=== PATIENT | female | born 1970 | race Caucasian/White ===

== ENCOUNTER 2018-08-12 00:56 | Outpatient (CLI) | payer BC, SELFPAY ==
--- NOTE | 2018-08-12 07:00 | DI.US_ITS ---
SYMPTOM/DIAGNOSIS: RUQ PAIN WITH VOMITING, R10.11 ABDOMEN ULTRASOUND: The aorta and vena cava are normal. The liver is somewhat enlarged with a maximal diameter at the mid clavicular line of 17.1 cm. There is no evidence of cholelithiasis. The gallbladder is intact. There is no evidence of ductal obstruction. The pancreas is intact. The spleen is intact. There is a 4.9 by 3.5 by 3.7 cm., known, angiomyolipoma involving the left kidney. This finding was demonstrated on a previous CT examination of 04/05/2012. There are at least two smaller hyperechoic regions in the left kidney suggesting additional angiomyolipomata. There is no evidence of hydronephrosis. There is no evidence of abdominal free fluid. SUMMARY: Angiomyolipomata involving the left kidney are demonstrated. A dominant mass is unchanged when compared with previous images and at least two smaller areas of increased echogenicity likely represent additional angiomyolipomata.
== END 2018-08-12 01:16 ==
PROVIDERS: PCP Internal Medicine; Visit Provider Internal Medicine
DX: R10.11 Right upper quadrant pain (principal); R11.10 Vomiting, unspecified; D17.71 Benign lipomatous neoplasm of kidney
CPT/HCPCS: 76700

== ENCOUNTER 2018-08-16 13:02 | Outpatient (CLI) | payer BC, SELFPAY ==
[2018-08-16 14:14] LABS: ALT 29 U/L (12-78); AST 19 U/L (15-37); Albumin 3.6 g/dL (3.4-5.0); Alkaline Phosphatase 65 U/L (46-116); Bilirubin, Direct 0.12 mg/dL (0.00-0.20); Bilirubin, Total 0.6 mg/dL (0.2-1.0); Total Protein 6.8 g/dL (6.4-8.2)
[2018-08-17 11:28] LABS: Hepatitis A Antibody IgM Negative (NEGAT); Hepatitis B Core Antibody Negative (NEGAT); Hepatitis B surface Ag Negative (NEGAT); Hepatitis C Ab w Rflx HCV PCR Negative (NEGAT)
== END 2018-08-16 13:22 ==
PROVIDERS: PCP Internal Medicine; Visit Provider Internal Medicine
DX: R10.11 Right upper quadrant pain (principal); R94.5 Abnormal results of liver function studies; R16.0 Hepatomegaly, not elsewhere classified
CPT/HCPCS: 36415; 80076; 86704; 86709; 86803; 87340

== ENCOUNTER 2019-02-14 09:45 | Outpatient (CLI) | payer BC, SELFPAY ==
[2019-02-14 10:26] LABS: Abs Immature Grans 0.01 k/cumm (0.0-0.09); Absolute Basophil Count 0.01 k/cumm (0.0-0.2); Absolute Eosinophil Count 0.21 k/cumm (0.0-0.7); Absolute Lymphocyte Count 1.14 k/cumm (1.2-3.4); Basophils % 0.3; Eosinophils % 5.4; HCT 38.1 % (36.0-46.0); HGB 12.7 g/dL (12.0-15.5); Immature Grans % 0.3; Lymphocytes % 29.1; Mean Corp. HGB Concentration 33.3 g/dL (32.0-36.0); Mean Corpuscular Hemoglobin 28.7 pg (27.0-33.0); Mean Corpuscular Volume 86.2 fL (80-95); Mean Platelet Volume 10.3 fL (8.0-11.0); Monocytes % 10.2; Neutrophils % 54.7; Platelet Count 271 x1000/uL (130-400); RBC 4.42 m/cumm (4.00-5.20); RBC Distribution Width 12.5 % (11.7-14.6); White Blood Cell Count 3.92 k/cumm (4.4-10.8)
[2019-02-14 10:38] LABS: Absolute Neutrophil Count 2.14 k/cumm (1.2-6.7)
[2019-02-14 11:33] LABS: ALT 36 U/L (12-78); AST 17 U/L (15-37); Albumin 3.8 g/dL (3.4-5.0); Alkaline Phosphatase 72 U/L (46-116); BUN 14 mg/dL (7-18); Bilirubin, Total 0.8 mg/dL (0.2-1.0); CREATININE 0.79 mg/dL (0.55-1.02); Calcium 9.2 mg/dL (8.5-10.1); Chloride 104 mmol/L (98-107); Glucose 76 mg/dL (70-100); Potassium 4.1 mmol/L (3.5-5.1); Sodium 141 mmol/L (136-145); Total Protein 7.3 g/dL (6.4-8.2)
== END 2019-02-14 10:05 ==
PROVIDERS: PCP Internal Medicine; Visit Provider Internal Medicine
DX: I10 Essential (primary) hypertension (principal)
CPT/HCPCS: 36415; 80053; 85025

== ENCOUNTER 2019-02-18 00:43 | Outpatient (CLI) | payer BC, SELFPAY ==
--- NOTE | 2019-02-18 11:30 | ETT_ITS ---
*[facility]* *[facility]* [address] [place] [address] Stress Electrocardiography Alex protocol Date of study: 02/18/2019 *PATIENT PRESENTATION* Height: 157.5cm (62in) Blood Pressure: Weight: 79.5kg (175lb) BSA: 1.9m^2 Referring physician: Teresa Watters Ordering physician: Teresa Watters Impressions: Normal study after maximal exercise. Summary: 1. Stress ECG conclusions: Franz treadmill score: 10. This score predicts a low risk of cardiac events. 2. Stress: The target heart rate was achieved. Indication: R07.9. History: REASON FOR TESTING: SINCE THE BEGINNING OF WINTER PATIENT HAS HAD INTERMITTENT BRIEF EPISODES OF TENDERNESS ABOVE HER LEFT BREAST RADIATING TO HER LEFT AXILLA. THESE EPISODES LAST APPROXIMATELY 5-10 MINUTES AND GOES AWAY ON ITS OWN AND ARE NOT ASSOCIATED WITH ACTIVITY OR REST. SHE ALSO NOTES SHORTNESS OF BREATH WHEN GOING UP STAIRS AND LYING DOWN. SHE DENIES CHEST PAIN/PRESSURE UPON ARRIVAL TO TESTING TODAY. SIGNIFICANT PAST MEDICAL HISTORY: NONE. SMOKING STATUS: NEVER. EXERCISE ROUTINE: DAILY ADL'S. Risk factors: Family history of coronary artery disease. Hypertension. Obesity. Cholesterol: 196mg/dl. HDL: 68mg/dl. LDL: 120mg/dl. Triglycerides: 50mg/dl. ALLERGIES: NO MEDICATION ALLERGIES. MEDICATIONS: LISINOPRIL 10 MG DAILY, PANTOPRAZOLE 40 MG DAILY, VITAMIN D 2000 UNITS DAILY, L LYSINE 2 CAPSULES DAILY. Protocol: Alex protocol. Baseline ECG: SINUS RHYTHM. HR 86 BPM. Stress protocol: + +---+ + !Stage !HR !BP (mmHg) ! + +---+ + !Baseline supine !86 !128/80 (96) ! + +---+ + !Baseline standing !89 !130/84 (99) ! + +---+ + !Stage I; 1.7mph, 10degrees; 3 min !124!148/76 (100)! + +---+ + !Stage II; 2.5mph, 12degrees; 3 min !143!152/70 (97) ! + +---+ + !Stage III; 3.4mph, 14degrees; 3 min!174!168/70 (103)! + +---+ + !Peak stress !188! ! + +---+ + !Recovery; 1 min !162!170/60 (97) ! + +---+ + !Recovery; 4 min !113!140/72 (95) ! + +---+ + !Recovery; 6 min !110!136/74 (95) ! + +---+ + !Recovery; 9 min !108!130/74 (93) ! + +---+ + * Stress results: STRESS TEST ENDED IN 10 MINUTES 4 SECONDS DUE TO FATIGUE. NORMAL HEART RATE RESPONSE TO EXERCISE, BUT HEART RATE SLOW TO RETURN TO BASELINE IN RECOVERY PHASE. NORMAL BLOOD PRESSURE RESPONSE TO EXERCISE. MAX HEART RATE: 188. 109 % OF TARGET HEART RATE ACHIEVED. MET'S: 109. NO ECTOPY. NO ANGINA. NO SIGNIFICANT ST SEGMENT CHANGES. FUNCTIONAL CAPACITY: ABOVE AVERAGE. Maximal heart rate during stress was 188bpm (109% of maximal predicted heart rate). The maximal predicted heart rate was 172bpm. The target heart rate was achieved. The rate-pressure product for the peak heart rate and blood pressure was 65206bu Hg/min. Stress ECG: Franz treadmill score: 10. This score predicts a low risk of cardiac events. Study data: Francisco Diaz MD supervised and was readily available during the procedure. This study was interpreted by [facility]. Study status: Routine. Consent: The risks, benefits, and alternatives to the procedure were explained to the patient and informed consent was obtained. Procedure: Initial setup. A baseline ECG was recorded. Surface ECG leads and manual cuff blood pressure measurements were monitored. Heart sounds: Normal. Lung sounds: Normal. Treadmill exercise testing was performed using the Alex protocol. Study completion: The patient tolerated the procedure well and was discharged from the lab. Discharge: The patient left the laboratory in stable condition. Birthdate: Patient birthdate: 1970. Sex: Gender: female. Study date: Study date: 02/18/2019. Study time: 00:01 AM. Signature Documentation: The Stress ECG portion of this study was interpreted by Francisco Diaz MD. Electronically signed by Francisco Diaz 02/18/2019 12:48
== END 2019-02-18 01:03 ==
PROVIDERS: PCP Internal Medicine; Visit Provider Internal Medicine
DX: R07.9 Chest pain, unspecified (principal); R06.02 Shortness of breath; I10 Essential (primary) hypertension; Z82.49 Family history of ischemic heart disease and other diseases of the circulatory system
CPT/HCPCS: 93017

== ENCOUNTER 2022-07-15 15:26 | Outpatient (REF) | payer BC, SELFPAY ==
[2022-07-15 17:15] LABS: Abs Immature Grans 0.01 10^3/uL (0.0-0.06); Absolute Basophil Count 0.02 10^3/uL (0.0-0.2); Absolute Eosinophil Count 0.15 10^3/uL (0.0-0.7); Absolute Lymphocyte Count 1.27 10^3/uL (1.2-3.4); Absolute Monocyte Count 0.54 10^3/uL (0.1-0.8); Absolute Neutrophil Count 3.33 10^3/uL (1.2-6.7); Basophils % 0.4; Eosinophils % 2.8; HCT 39.5 % (36.0-46.0); HGB 13.4 g/dL (11.2-15.7); Immature Grans % 0.2; Lymphocytes % 23.9; MCH 29.4 pg (27.0-33.0); MCHC 33.9 % (32.0-36.0); MCV 87 fL (80-95); MPV 10.8 fL (8.0-11.0); Monocytes % 10.2; Neutrophils % 62.5; Platelet Count 315 10^3/uL (130-400); RBC 4.56 10^6/uL (3.93-5.22); RDW 12.3 % (11.7-14.6); WBC 5.32 10^3/uL (4.4-10.8)
== END 2022-07-15 15:27 | disposition home or self-care (01) ==
LOC: NCHCN 15:26
PROVIDERS: PCP Family Medicine; Visit Provider Physician Assistant Medical
DX: R07.89 Other chest pain (principal); R03.0 Elevated blood-pressure reading, without diagnosis of hypertension
CPT/HCPCS: 80053; 85025

== ENCOUNTER → 2022-07-16 01:52 | Outpatient (CLI) | payer BC, SELFPAY ==
--- NOTE | 2022-07-16 10:59 | DI.RAD_ITS ---
Exam(s) XR SHOULDER LT COMPLETE 2+V EXAM: XR SHOULDER LT COMPLETE 2+V CLINICAL HISTORY: LT SHOULDER PAIN, M25.512. TECHNIQUE: 2D digital imaging was performed. COMPARISON: No exams were available for comparison FINDINGS: Five views No evidence of fracture nor dislocation or abnormal soft tissue calcifications. Subacromial space ap pears unremarkable. There are no degenerative changes in the glenohumeral and AC joints. Bone densi ty normal. No osseous lesions. No os acromiale. IMPRESSION: No significant radiograph findings in the left shoulder. DATA REPOSITORY: RADIATION DOSE DELIVERED:
== END ==
PROVIDERS: PCP Family Medicine; Visit Provider Physician Assistant Medical
DX: M25.512 Pain in left shoulder (principal)
CPT/HCPCS: 73030

== ENCOUNTER 2022-07-29 19:15 | Outpatient (REF) | payer BC, SELFPAY ==
[2022-07-29 16:05] LABS: ALT 35 U/L (14-59); AST 25 U/L (15-37); Albumin 3.7 g/dL (3.4-5.0); Alkaline Phosphatase 67 U/L (46-116); Anion Gap 7.5 mmol/L (3-11); BUN 8 mg/dL (7-18); Bilirubin, Total 0.6 mg/dL (0.2-1.0); CO2 27.5 mmol/L (21.0-32.0); CREATININE 0.8 mg/dL (0.55-1.02); Calcium 8.8 mg/dL (8.5-10.1); Chloride 105 mmol/L (98-107); Estimated GFR 89.15 (mL/min/1.73m2); Glucose 94 mg/dL (74-106); Magnesium 1.5 mg/dL (1.8-2.4); Potassium 3.9 mmol/L (3.5-5.1); Sodium 140 mmol/L (136-145); TSH (W/Ref FT4) 1.86 uIU/mL (0.36-3.74); Total Protein 7.3 g/dL (6.4-8.2)
== END 2022-07-29 19:16 | disposition home or self-care (01) ==
LOC: NCHCN 19:15
PROVIDERS: PCP Physician Assistant Medical; Visit Provider Physician Assistant Medical
DX: R03.0 Elevated blood-pressure reading, without diagnosis of hypertension (principal); R07.89 Other chest pain
CPT/HCPCS: 80053; 83735; 84443

== ENCOUNTER 2022-08-20 12:53 | Outpatient (REF) | payer BC, SELFPAY ==
[2022-08-20 17:37] LABS: Magnesium 1.8 mg/dL (1.8-2.4)
== END 2022-08-20 12:54 | disposition home or self-care (01) ==
LOC: NCHCN 12:53
PROVIDERS: PCP Physician Assistant Medical; Visit Provider Physician Assistant Medical
DX: E83.42 Hypomagnesemia (principal)
CPT/HCPCS: 83735

== ENCOUNTER 2023-06-26 10:44 | Outpatient (REF) | payer BC, SELFPAY ==
[2023-06-26 16:30] LABS: Abs Immature Grans 0.01 10^3/uL (0.0-0.06); Absolute Basophil Count 0.02 10^3/uL (0.0-0.2); Absolute Eosinophil Count 0.18 10^3/uL (0.0-0.7); Absolute Lymphocyte Count 1.06 10^3/uL (1.2-3.4); Absolute Monocyte Count 0.45 10^3/uL (0.1-0.8); Absolute Neutrophil Count 3.01 10^3/uL (1.2-6.7); Basophils % 0.4; Eosinophils % 3.8; HCT 38.8 % (36.0-46.0); HGB 13.2 g/dL (11.2-15.7); Immature Grans % 0.2; Lymphocytes % 22.4; MCH 29.4 pg (27.0-33.0); MCV 86 fL (80-95); MPV 11.1 fL (8.0-11.0); Monocytes % 9.5; Neutrophils % 63.7; Platelet Count 283 10^3/uL (130-400); RBC 4.49 10^6/uL (3.93-5.22); RDW 12.6 % (11.7-14.6); RDW-SD 39.8 fL; WBC 4.73 10^3/uL (4.4-10.8)
[2023-06-26 17:30] LABS: ALT 24 U/L (14-59); AST 29 U/L (15-37); Albumin 3.7 g/dL (3.4-5.0); Alkaline Phosphatase 54 U/L (46-116); BUN 9 mg/dL (7-18); Bilirubin, Total 0.7 mg/dL (0.2-1.0); CREATININE 0.6 mg/dL (0.55-1.02); Calcium 8.9 mg/dL (8.5-10.1); Calculated LDL 110 mg/dL (<100); Chloride 107 mmol/L (98-107); Cholesterol 188 mg/dL (<200); Estimated GFR 107.93 (mL/min/1.73m2); Glucose 116 mg/dL (74-106); HDL Cholesterol 66 mg/dL (40-60); Magnesium 1.8 mg/dL (1.8-2.4); Potassium 4.1 mmol/L (3.5-5.1); Sodium 139 mmol/L (136-145); Total Protein 7.4 g/dL (6.4-8.2); Triglyceride 63 mg/dL (<150)
== END 2023-06-26 10:45 | disposition home or self-care (01) ==
LOC: NCHCN 10:44
PROVIDERS: PCP Physician Assistant Medical; Visit Provider Physician Assistant Medical
DX: R06.02 Shortness of breath (principal); I10 Essential (primary) hypertension; R73.09 Other abnormal glucose; R53.83 Other fatigue
CPT/HCPCS: 80053; 80061; 83735; 84443; 85025

== ENCOUNTER 2023-07-01 02:04 | Outpatient (CLI) | payer BC, SELFPAY ==
--- NOTE | 2023-07-01 09:00 | DI.RAD_ITS ---
Exam(s) XR CHEST 2V PA LATERAL EXAM: XR CHEST 2V PA LATERAL CLINICAL HISTORY: SOB, R06.02 TECHNIQUE: 2D digital imaging was performed. COMPARISON: CR,RF BARIUM SWALLOW W PA LAT CXR from 09/17/2012 FINDINGS: HEART: Normal size. Aorta: Not dilated. PULMONARY VASCULATURE: Normal. LUNGS: Clear. PLEURAL SPACE: No pleural effusion or pneumothorax. BONE:Unremarkable for age. IMPRESSION: No acute abnormality. DATA REPOSITORY: RADIATION DOSE DELIVERED:
== END 2023-07-01 02:24 ==
LOC: DI 02:04
PROVIDERS: PCP Physician Assistant Medical; Visit Provider Physician Assistant Medical
DX: R06.02 Shortness of breath (principal)
CPT/HCPCS: 71046

== ENCOUNTER 2023-08-27 19:00 | Emergency (ER) | payer BC, SELFPAY ==
[2023-08-27] VITALS (34 sets, daily range): BP systolic 137–190; BP diastolic 67–107; PULSE 85–108; RESP 14–26; TEMP 36.6–37.6; O2SAT 94–98
--- NOTE | 2023-08-27 19:15 | DI.RAD_ITS ---
Exam(s) XR WRIST LT COMPLETE EXAM: XR WRIST LT COMPLETE CLINICAL HISTORY: Deformity. TECHNIQUE: 2D digital imaging was performed. Three views. COMPARISON: No exams were available for comparison FINDINGS: BONES: Comminuted distal radial fracture with significant dorsal displacement and angulation. There is also some impaction and foreshortening. The distal ulna and carpal bones appear intact. No bony destructive lesion is seen. JOINTS: The carpal bones are normally aligned. SOFT TISSUE: Diffuse swelling. IMPRESSION: Comminuted, displaced distal radial fracture. DATA REPOSITORY: RADIATION DOSE DELIVERED:
--- NOTE | 2023-08-27 19:29 | ED.GENADUL_ITS ---
Discharge Plan Disposition Patient Disposition: Home Condition: Improving Discharge Details Clinical Impression: Fracture of radius Primary Care Provider: Amy Castanon ED Provider: Daina Do Home Meds and New Rx's Prescriptions: Continued magnesium 500 mg Tablet 500 mg PO DAILY cranberry 400 mg Capsule 400 mg PO DAILY omega-3 fatty acids 300 mg Capsule 300 mg PO DAILY No Action naproxen 250 mg tablet 250 - 500 mg PO BID PRNQty: 30 0RF Rx Instructions: take with a meal oxycodone 5 mg tablet 5 - 10 mg PO Q4H MDD 30 mg PRN (Reason: moderate to severe pain) Qty: 12 0RF Discharge Instructions Instructions: Arm Fracture in Adults (ED), Splint Care (ED) Additional Instructions: Keep splint dry. Keep arm elevated above level of your heart. Ice. Take the Percocet as needed for moderate to severe pain. If the desmond wrap feels too tight, you may loosen it but do not take the splint off. Present to day surgery at 6:30 AM tomorrow morning as instructed. Do not eat or drink anything after midnight tonight. You may have small sips of water with medications if needed. Referrals: Beto Ruiz MD [ [facility] STAFF PHYSICIAN] - 1 day Discharge Data Discharge Date/Time-TO BE ENTERED AT DEPARTURE: 08/27/23 23:40 Medical Decision Making 53-year-old female presents to the ER with a chief complaint of left wrist pain status post a fall off a ladder. This occurred just prior to arrival. She does have some deformity and swelling noted to the palmar surface of her distal left wrist. Radial pulses intact hand is pink warm dry. Denies any other injuries. Denies hitting her head no neck or back pain. X-ray left wrist, set and Zofran ordered. Images sent to Dr. Ruiz who is patient transition specialist for orthopedics. He recommends reduction with either Hematoma block, sedation or finger traps. Will discuss with patient. Patient consented for hematoma block and reduction with finger traps. Wrist reduction performed, placed in sugar tong splint, patient reports improvement in pain after reduction, wrist appears in more anatomical alignment. Post reduction XR ordered. Will consider Sedation with additional revision of reduction if needed. 2140: Discussed concious sedation with patient and family, she verbalizes understanding. Will consent for procedure with Dr. Shields assistance. 2230: RT at BS, patient on monitor, preparing for conscious sedation, Finger traps at BS. 2248: Propofol 80 mg given IVP, Postreduction XR ordered, splint applied. CMS intact post splint application, assisted by Dr. Shields. Patient remained hemodynamically stable, and easily arrousable throughout procedure. Dr. Ruiz recommends presnting to Day surgery tomorrow am at 0630 to further reduce wrist, discussed NPO status with patient and family who verbalize understanding. Will send home with a percocet as needed. Sling placed. This text was generated using [employer] system, please disregard any oddities of phrase or misspellings. HPI General Mode of arrival: ambulatory . Date/Time Provider Initiated Documentation: 08/27/23 19:02 . Limitations to Documentation: no limitations . Information obtained by: patient, RN notes reviewed and old records reviewed . HPI Narrative: 53-year-old female presents to the ER with a chief complaint of left wrist pain status post a fall off a ladder. This occurred just prior to arrival. She does have some deformity and swelling noted to the palmar surface of her distal left wrist. Radial pulses intact hand is pink warm dry. Denies any other injuries. Denies hitting her head no neck or back pain. Related Data Home Medications Medication Instructions Recorded Confirmed cranberry 400 mg capsule 400 mg PO DAILY 08/27/23 08/28/23 magnesium 500 mg tablet 500 mg PO DAILY 08/27/23 08/28/23 omega-3 fatty acids 300 mg capsule 300 mg PO DAILY 08/27/23 08/28/23 naproxen 250 mg tablet 250 - 500 mg PO BID PRN #30 tabs 08/28/23 oxycodone 5 mg tablet 5 - 10 mg PO Q4H PRN moderate to 08/28/23 severe pain #12 tabs Previous Rx's Medication Instructions Recorded naproxen 250 mg tablet 250 - 500 mg PO BID PRN #30 tabs 08/28/23 oxycodone 5 mg tablet 5 - 10 mg PO Q4H PRN moderate to 08/28/23 severe pain #12 tabs Allergies Allergy/AdvReac Type Severity Reaction Status Date / Time No Known Allergies Allergy Verified 08/28/23 07:23 General Stated Complaint: Orthopedic FRANCISCA: 3 Review of Systems All systems reviewed & are unremarkable except as noted in HPI and below ENT Ears, Nose, Mouth, and Throat: Denies neck pain Musculoskeletal Musculoskeletal: Reports as per HPI, Denies back pain, Reports arthralgias, Reports joint swelling and Denies neck pain PFSH All Active Problems (Updated 08/28/23 @ 06:58 by Beto Ruiz MD) Fracture of left distal radius (Acute 08/27/23) Epicondylitis, lateral, right (Acute) History of bilateral ligation of fallopian tubes (Acute) History of myringotomy (Acute) Status post adenoidectomy (Acute) Uterine prolapse (Acute 10/06/12) SEES DR. 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 07/29 Medical History Essential hypertension Surgical History Adenoidectomy Ligation of fallopian tube Myringotomy w/ PE (pressure equalizing) tubes Family History Mother Essential hypertension Father Diabetes Hyperlipidemia Essential hypertension Sister No problems noted. Brother No problems noted. Maternal Grandfather , AGE 85 Alcohol abuse Lymphoma Paternal Grandfather , AGE 26 Leukemia Maternal Grandmother , AGE 54 Diabetes Stroke Paternal Grandmother Diabetes Cancer Paternal Aunt Diabetes Paternal Uncle Diabetes Son No problems noted. Son No problems noted. Son No problems noted. Son No problems noted. Son No problems noted. 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 Pets and animals: Yes Pets and animals: dog(s) Sexually active: Yes Do you think of yourself as: straight/heterosexual Current gender identity: female What is your relationship status?: How often do you talk on the phone with friends or family?: three or more times per week How often do you get together with friends or relatives?: three or more times per week How often do you attend denominational or taoist services?: 4 or more times per year Do you belong to any clubs or organized social groups?: no Panel score (0-1 are the most socially isolated patients): 3 What type of physical activity do you participate in: walking Duration: 15-30 minutes/day Frequency: 1-2 times per week Bhavna/Zoroastrianism: Tenriism Special bhavna needs: No Seatbelt use: always Helmet use: No (N/A) Drive intox or ride w/intox party bus driver: No Exam Extrem General: normal to inspection Left upper extremity: wrist Details: abnormal to inspection Details: obvious deformity, tenderness, swelling and radial pulse present Course Vital Signs Vital signs: Vital Signs Temperature 37.6 C H 08/27/23 19:10 Pulse 85 08/27/23 19:10 Respiratory Rate 26 H 08/27/23 19:10 Blood Pressure 164/89 H 08/27/23 19:10 Pulse Oximetry 98 08/27/23 19:10 Temperature 37.6 C H 08/27/23 19:10 Temperature Source Temporal Artery Scan 08/27/23 19:10 Pulse 85 08/27/23 19:10 Respiratory Rate 26 H 08/27/23 19:10 Blood Pressure 164/89 H 08/27/23 19:10 Blood Pressure Position Sitting 08/27/23 19:10 Pulse Oximetry 98 08/27/23 19:10 Oxygen Delivery Method Room Air 08/27/23 19:10 Oxygen Flow Rate 0 08/27/23 19:10 Pain Level 9 08/27/23 19:10 Procedures Nerve Block Nerve Block 1: Time out performed: No Local Anesthetic: Lidocaine 1%, Bupivicaine 0.5% and with Epi Side: left Nerve Blocks: hematoma block (left wrist) Patient Tolerated Procedure: well and no complications Complications: none Orthopedic Fracture Reduction Fracture #1: Time Out Performed: Yes (Assisted by Dr. Fernandez) Side: left Fracture Reduction Location: radius Analgesia: procedural sedation Technique: direct manipulation and finger traps Post-reduction neuro exam: intact Post-reduction vascular exam: intact Splint Applied: Yes Patient Tolerated Procedure: well
[2023-08-27] MEDS: oxyCODONE 5 mg/Acetaminophen 325 mg TAB 1 TAB PO ×2 (19:52→23:42)
[2023-08-27] MEDS: Ondansetron O.D.T. 4 MG TABEF PO (19:52)
--- NOTE | 2023-08-27 20:28 | DI.VRAD_ITS ---
PROCEDURE INFORMATION: Exam: XR Left Wrist Exam date and time: 08/27/2023 8:01 PM Age: 53 years old Clinical indication: Other: Deformity TECHNIQUE: Imaging protocol: Radiologic exam of the left wrist. Views: 3 or more views. COMPARISON: No relevant prior studies available. FINDINGS: Bones/joints: Impacted comminuted and dorsally angulated distal radial fracture. No dislocation at the radiocarpal joint. Soft tissues: Swelling surrounding the wrist. Faint osseous fragment noted dorsally IMPRESSION: Comminuted distal radial fracture with impaction and angulation as noted Dictated and Authenticated by: Albert Harkins MD. Ordering:CELESTE Lama MD
--- NOTE | 2023-08-27 21:00 | DI.RAD_ITS ---
Exam(s) XR WRIST LT LIMITED EXAM: XR WRIST LT LIMITED CLINICAL HISTORY: Post reduction. TECHNIQUE: 2D digital imaging was performed. Two views. Portable. COMPARISON: CR,XR XR WRIST LT COMPLETE from 08/27/2023 FINDINGS: A splint has been placed. There has been no significant change in the alignment of the comminuted, i mpacted and angulated distal radial fracture. The distal ulna and carpal bones are grossly intact. DATA REPOSITORY: RADIATION DOSE DELIVERED:
--- NOTE | 2023-08-27 21:53 | DI.VRAD_ITS ---
PROCEDURE INFORMATION: Exam: XR Left Wrist Exam date and time: 08/27/2023 9:26 PM Age: 53 years old Clinical indication: Other: Post reduction TECHNIQUE: Imaging protocol: Radiologic exam of the left wrist. Views: 1 or 2 views. COMPARISON: CR XR WRIST LT COMPLETE 08/27/2023 8:01 PM FINDINGS: Bones/joints: Status post closed reduction of a displaced distal left radial epiphyseal fracture. Complete dorsal displacement and dorsal angulation persist. No significant reduction compared with the pre casting image. This is a surgical fracture. Distal ulna is intact. Soft tissues: Normal. IMPRESSION: Persistent severe displacement and dorsal angulation of the distal left radial epiphysis. Orthopedic consultation is recommended for surgical evaluation. Dictated and Authenticated by: Adis Arthur MD. Ordering:CELESTE Lama MD
[2023-08-27] MEDS: Normal Saline 1,000 ML 150 ML IV (22:00)
[2023-08-27] MEDS: Propofol 200 MG/20 ML VIAL 80 MG IVP (22:37)
--- NOTE | 2023-08-27 22:45 | DI.RAD_ITS ---
Exam(s) XR WRIST LT LIMITED EXAM: XR WRIST LT LIMITED CLINICAL HISTORY: Post reduction. TECHNIQUE: 2D digital imaging was performed. Three views. COMPARISON: No exams were available for comparison FINDINGS: A splint has been placed. There has been some improvement in the amount posterior angulation and displacement of the distal rad ial fracture. The carpal alignment remains normal. IMPRESSION: Improved alignment of distal radial fracture. DATA REPOSITORY: RADIATION DOSE DELIVERED:
--- NOTE | 2023-08-27 23:06 | DI.VRAD_ITS ---
PROCEDURE INFORMATION: Exam: XR Left Wrist Exam date and time: 08/27/2023 10:59 PM Age: 53 years old Clinical indication: Other: Post reduction TECHNIQUE: Imaging protocol: Radiologic exam of the left wrist. Views: 1 or 2 views. COMPARISON: CR XR WRIST LT LIMITED 08/27/2023 9:26 PM FINDINGS: Bones/joints: Additional attempt at closed reduction of left wrist distal radial Colles fracture. There is improved alignment. There is persistent dorsal displacement of the epiphysis 4-5 mm. There is dorsal angulation at approximately 10 degrees. No ulnar fracture. Carpal bones are unremarkable. Soft tissues: Normal. IMPRESSION: 1. Improved alignment of distal radial Colles fracture. Persistent 5 mm dorsal displacement of the epiphysis and approximately 10 degree dorsal angulation. 2. Fiberglass splint in position. Dictated and Authenticated by: Adis Arthur MD. Ordering:CELESTE Lama MD
--- NOTE | 2023-08-27 23:13 | NUR.NOTE ---
2237 started with half dose-40mg of propofol. started to feel something at 1038-given the full dose-another 40mg. 2240 splinting. pt awake and talking.Nursing Note:
--- NOTE | 2023-08-27 23:30 | W.ED.PROC ---
Date of service: 08/27/23 Time of Service: 23:30 Procedures Orthopedic Joint Reduction Joint #1: Time Out Performed: Yes Side: left Joint Reduction Location: wrist Analgesia: procedural sedation and other (Propofol 1 mg/kg) Technique used: direct manipulation Post-reduction neuro exam: intact Post-reduction vascular: intact Post Reduction X-Ray Obtained: Yes Post Reduction X-Ray Results: reduced Splint Applied: Yes Patient Tolerated Procedure: well
== END 2023-08-27 23:40 | disposition home or self-care (01) ==
PROVIDERS: Emergency Provider Registered Nurse Emergency; PCP Physician Assistant Medical
DX: M25.532 Pain in left wrist (principal); S52.572A Other intraarticular fracture of lower end of left radius, initial encounter for closed fracture; W11.XXXA Fall on and from ladder, initial encounter
CPT/HCPCS: 25605; 73100; 73110; J2704

== ENCOUNTER 2023-08-28 06:48 | Day surgery (SDC) | payer BC, SELFPAY ==
--- NOTE | 2023-08-28 06:58 | W.ORTHOCONSU ---
Date of service: 08/28/23 Time of Service: 06:58 Assessment and Plan Assessment and plan (1) Fracture of left distal radius: Status: Acute Assessment and plan: 53-year-old female with left displaced distal radius fracture Fall off ladder maybe 6 feet onto left wrist. Isolated injury with only mild complaints of left-sided lower extremity and face discomfort. Does not feel anything serious. Denied any numbness or tingling after injury. No pre-existing wrist problems at all. Denies any previous fractures. [id number]. 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 Enjoys playing with grandkids. No high demand stress or activities with the risks. Presented to the emergency room last night and had a initial reduction attempt with hematoma block unsuccessful. Second reduction attempt under conscious sedation reduced majority of the deformity, but there was residual moderate dorsal angulation. Overnight she used pain medicine 1 time for some discomfort and swelling in the fingers and thumb. No significant medical history. Non-smoker. Nondiabetic. Left wrist examined with sugar-tong in place. Ring has been removed, moderate early edema distal hand and fingers. Demonstrates intact motor all fingers and thumb. Thumb extension EPL slightly weak. No numbness or tingling or signs of compartment syndrome or carpal tunnel syndrome. Brisk capillary refill. No other notable injuries about the ipsilateral elbow shoulder or body. Left wrist x-rays done last night reviewed showing higher?energy type significantly dorsally angulated fracture about 50 degrees with small mildly displaced intra-articular extension into the lunate facet. Initial reduction films show possible worsening fracture in the radial direction without any improvement in dorsal angulation and splint ending barely distal to the fracture. Second reduction films show significant improvement in coronal and sagittal alignment with the moderate residual dorsal angulation about 20-25 degrees. Intra-articular extension remains minimally displaced. No significant loss of radial height or inclination. Discussed thoroughly, recommend additional intervention to optimize healing and functional result. We reviewed the treatment options in detail including final closed reduction attempt under anesthesia with splinting and serial follow-up versus open reduction internal fixation at this time. Patient strong preference to avoid any surgery at this time. She understands the risk of reduction failure and need for ORIF in the next 1-3 weeks. Decision to proceed with procedure today left wrist closed reduction with manipulation under anesthesia. Patient would like regional anesthetic nerve block as well optimize pain control. No nerve injury or contraindications to nerve block despite recent trauma. The risks, benefits, and alternatives were thoroughly discussed. Patient was counseled regarding pain management, expected postoperative course, and recovery timeline. All questions were answered. Informed consent was obtained. Agree and understand treatment plan. Follow up 1-2 weeks after surgery depending on reduction and stability Will call if any changes or concerns. Breathing comfortably on room air. No coughs or wheezes. 2+ right radial pulse. Regular rate and rhythm. PFSH All Active Problems (Updated 08/28/23 @ 06:58 by Beto Ruiz MD) Fracture of left distal radius (Acute 08/27/23) Epicondylitis, lateral, right (Acute) History of bilateral ligation of fallopian tubes (Acute) History of myringotomy (Acute) Status post adenoidectomy (Acute) Uterine prolapse (Acute 10/06/12) SEES DR. 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 Brother No problems noted. Maternal Grandfather , AGE 85 Alcohol abuse Lymphoma Paternal Grandfather , AGE 26 Leukemia Maternal Grandmother , AGE 54 Diabetes Stroke Paternal Grandmother Diabetes Cancer Paternal Aunt Diabetes Paternal Uncle Diabetes Son No problems noted. Son No problems noted. Son No problems noted. Son No problems noted. Son No problems noted. 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 Pets and animals: Yes Pets and animals: dog(s) Sexually active: Yes Do you think of yourself as: straight/heterosexual Current gender identity: female What is your relationship status?: How often do you talk on the phone with friends or family?: three or more times per week How often do you get together with friends or relatives?: three or more times per week How often do you attend baptist or mandaen services?: 4 or more times per year Do you belong to any clubs or organized social groups?: no Panel score (0-1 are the most socially isolated patients): 3 What type of physical activity do you participate in: walking Duration: 15-30 minutes/day Frequency: 1-2 times per week Bhavna/Caodaism: Episcopalian Special bhavna needs: No Seatbelt use: always Helmet use: No (N/A) Drive intox or ride w/intox driver education road instructor: No
[2023-08-28 07:24] VITALS: BP 159/90; PULSE 82; RESP 16; TEMP 36.7; O2SAT 96
[2023-08-28] MEDS: Lactated Ringers 1,000 ML 80 ML IV (07:38)
--- NOTE | 2023-08-28 07:45 | DI.RAD_ITS ---
Exam(s) XR WRIST LT LIMITED EXAM: XR WRIST LT LIMITED CLINICAL HISTORY: LEFT DISTAL RADIUS FRACTURE. TECHNIQUE: 2D and realtime digital imaging was performed. COMPARISON: CR,XR XR WRIST LT LIMITED from 08/27/2023 FINDINGS: Hardcopy images show improvement in the alignment of the distal radial fracture. Please see procedure note for details. Fluoro time: 11.8seconds RADIATION DOSE DELIVERED: Kar=0.18 mGy
--- NOTE | 2023-08-28 08:03 | W.PM.DSUDISC ---
Date of service: 08/28/23 Time of Service: 10:00 Discharge Plan Disposition Patient Disposition: Home Discharge Details Attending Provider: Beto Ruiz Primary Care Provider: Amy Castanon Home Meds and New Rx's Prescriptions: New naproxen 250 mg tablet 250 - 500 mg PO BID PRNQty: 30 0RF Rx Instructions: take with a meal oxycodone 5 mg tablet 5 - 10 mg PO Q4H MDD 30 mg PRN (Reason: moderate to severe pain) Qty: 12 0RF Continued magnesium 500 mg Tablet 500 mg PO DAILY cranberry 400 mg Capsule 400 mg PO DAILY omega-3 fatty acids 300 mg Capsule 300 mg PO DAILY Discharge Instructions Additional Instructions: Surgery: Left wrist closed reduction with manipulation under anesthesia Activity: Nonweightbearing left wrist. Recommend elevation to minimize swelling discomfort. Encourage range of motion wiggle all fingers and thumb to prevent stiffness. You may use thumb and fingers gently for light activities. Prescriptions: Naproxen 250 mg take 1-2 every 12 hours with a meal as needed for moderate pain Oxycodone 5 mg take 1-2 every 4-6 hours as needed for severe pain You may use [id number] Tylenol (acetaminophen) as needed for mild pain. These pain medications may be taken all at once or in different combinations as needed. Also, recommend Colace (docusate) as a stool softener as surgery and pain medicine cause constipation. You may try [id number] diphenhydramine (Benadryl) 25-50 mg nightly as a sleep aid Dressings: Leave splint in place until follow-up. Keep clean and dry at all times. Follow-up: 10-[address] Ruiz Let us know right away if you develop any redness, drainage, fevers, chest pain, or trouble breathing. Do not drink alcohol or drive for at least 24 hours after anesthesia. Please call the office during business hours with any questions or concerns. DS: Diagnosis Discharge Diagnosis (1) Fracture of left distal radius: Status: Acute
--- NOTE | 2023-08-28 08:04 | W.ANESPRE ---
General Info Date of Service Date Performed: 08/28/23 Height: 5 ft 2 in Weight: 79.9 kg Body Mass Index (BMI): 32.2 Surgical Procedure: Operation Date: 08/28/23 08:40 Proposed Procedure Side Surgeon p Closed Reduction and splinting left wrist Left Beto Ruiz MD Actual Procedure Side Surgeon p Closed Reduction and splinting left wrist Left Beto Ruiz MD Pre-Op Diagnosis Post-Op Diagnosis LEFT DISTAL RADIUS FRACTURE LEFT DISTAL RADIUS FRACTURE Meds Allergies and Home Medications Allergies Allergy/AdvReac Type Severity Reaction Status Date / Time No Known Allergies Allergy Verified 08/28/23 07:23 Home Medication Medication Instructions Recorded cranberry 400 mg capsule 400 mg PO DAILY 08/27/23 magnesium 500 mg tablet 500 mg PO DAILY 08/27/23 omega-3 fatty acids 300 mg capsule 300 mg PO DAILY 08/27/23 Current Visit Medications: Current Medications Generic Name Dose Route Start Last Admin Trade Name Freq PRN Reason Stop Dose Admin Ringer's Solution 1,000 mls @ 80 mls/hr 08/28/23 06:45 08/28/23 07:38 IV 09/27/23 06:44 80 mls/hr INFUSION ASHLEY Administration Sodium Chloride 500 mls @ 0 mls/hr 08/28/23 06:43 Saline 500ml Bag IV 09/27/23 06:42 PRN PRN As Directed IV Miscellaneous Supplies 1 each 08/28/23 06:45 Iv Access IV 09/27/23 06:44 DIRECTED ASHLEY Sodium Chloride 0 ml 08/28/23 06:43 Normal Saline Flush 10 Ml Syr IVP 09/27/23 06:42 PRN PRN PFSH Active Problems Active Problems: Problem Status Onset Code Fracture of left distal radius 08/27/23 S52.502A Epicondylitis, lateral, right M77.11 History of bilateral ligation of fallopian tubes Z98.51 History of myringotomy Z98.890 Status post adenoidectomy Z90.89 Uterine prolapse 10/06/12 N81.4 Gastric motor function disorder 09/19/13 K31.89 Fatigue R53.83 Benign neoplasm of kidney 10/06/12 D30.00 Medical History Medical History Essential hypertension Surgical History Surgical History Adenoidectomy Ligation of fallopian tube Myringotomy w/ PE (pressure equalizing) tubes Tobacco Smoking/Tobacco Use Status: Never Second hand exposure: No Alcohol Alcohol Intake: current Alcohol intake frequency: a few times a week Substance Use Substance use: Never Vital Signs and Lab Results Vital Signs Most Recent Vital Signs in EMR: Most Recent Vital Signs Temp Pulse Resp BP Pulse Ox 36.7 C 82 16 159/90 H 96 08/28/23 07:24 08/28/23 07:24 08/28/23 07:24 08/28/23 07:24 08/28/23 07:24 Point of Care Results Point of Care Results: POC- Test(urine) Negative 08/28/23 07:09 Lab Results Blood Type / Crossmatch: No Data to Display Complete Blood Count: No Data to Display Complete Metabolic Panel: No Data to Display Liver Function Panel: No Data to Display Coagulation Panel: No Data to Display Cardiac Panel: No Data to Display Arterial Blood Gas: No Data to Display Venous Blood Gas: No Data to Display Pancreas Panel: No Data to Display Thyroid Panel: No Data to Display Infectious Disease: No Data to Display Blood Cultures: No Data to Display Toxicology Panel: No Data to Display Panel: No Data to Display Anesthesia Assessment and Plan Anesthesia History Personal History: Delayed Emergence Family History: No Family History of Anesthesia Complications Exercise Tolerance Exercise Tolerance: Metabolic Equivalents>4 Pertinent Negatives Pertinent Negatives: No Symptoms of GERD Cardiac & Pulmonary Exam Cardiac Exam: Normal S1/S2 Heart Sounds Pulmonary Exam: Clear Bilateral Breath Sounds Implantable Cardiac Device Does patient have a Pacemaker or an ICD?: No Airway Exam Known Difficult Airway: No Mallampati Class: 2 Mouth Opening: Normal (> 3cm) Thyromental Distance: Greater than 3 cm Neck Range of Motion: Full ROM Neck Circumference: Normal Teeth Condition: Normal Dentition ASA Classification ASA Score: ASA 2 Emergency Case?: No NPO Status NPO Status: NPO Clears >2 hours, Solids >8 hours Status Status: Negative HCG Anesthesia Plan Resuscitation Status: Full Code Anesthesia Technique: General Anesthesia Airway Planned: Natural Airway Monitors Used: Standard Monitors
--- NOTE | 2023-08-28 08:05 | ROE_ITS ---
Date of service: 08/28/23 Time of Service: 08:30 Operative Note Operative Note DATE OF PROCEDURE: 08/28/23 PRE-OP DIAGNOSIS: Left displaced distal radius fracture POST-OP DIAGNOSIS: same PROCEDURE: Left distal radius closed reduction with manipulation under anesthesia, CPT #78427 SURGEON: Beto Ruiz INTEGRATED PEST MANAGEMENT TECHNICIAN: Torie Valerio ANESTHESIA TYPE: General LMA/ETT and Primary Nerve Block Refer to Anesthesia Record COMPLICATIONS: None Patient was transported to: PACU Patient's condition: stable Indications: Please see complete medical record for details. Findings: Unstable displaced distal radius fracture, readily reducible Procedure Description: In the operating room, general anesthesia was induced. The patient was positioned supine on the stretcher. Preoperative antibiotics were omitted. The correct patient, procedure, and side of the procedure were all verified prior to beginning. The emergency room sugar-tong splint was removed and the left wrist examined. Skin was intact, radial pulse 2+, all forearm compartments soft, the dorsal step-off from the distal radius deformity was readily palpable. The single control center operator reduction maneuver was done with the elbow positioned at 90 degrees flexion, gentle traction applied with the arm below my thigh, and my hands were used to slightly exaggerate the fracture and then manipulate the distal radius into reduced alignment with a volar directed force combined with ulnar deviation. Post reduction C arm images confirmed excellent reduction. Clinically the wrist appeared well aligned. Neurovascular status remained intact. A plaster sugar-tong splint was then made and applied to the forearm with a three-point mold maintaining the reduction with a volar and ulnar directed force. The patient awoke from anesthesia without complication and was transferred to the recovery room in a stable condition.
[2023-08-28 08:07] VITALS: BMI 32.2
[2023-08-28 08:26] VITALS: BP 146/77; PULSE 99; RESP 21; TEMP 36.7; O2SAT 96
--- NOTE | 2023-08-28 08:56 | W.ANESNERVE ---
Nerve Block Single Injection Procedure Date and Time Date Performed: 08/28/23 Procedure Start: 08:32 Location Where Procedure Performed Procedure Location: Day Surgery Unit Reason Performed: Postoperative Analgesia Requesting Provider: Beto Ruiz Timeout Performed Timeout Performed: Yes Monitoring Used ECG, Blood Pressure, SpO2, ETCO2 and See EMR for corresponding vital signs Sterility Sterility: Hand Hygiene, Surgical Cap, Surgical Mask, Sterile Gloves, Eye Protection and Chlorhexidine Sedation Given During Procedure Sedation Given (Indicate Dose Given): Versed IV (Documented in Anesthesia record) Dose:: 2mg Patient Mental Status Patient Mental Status: Sedate with meaningful communication Nerve Block 1st Nerve Block: Laterality: Left Block Type: Supraclavicular Ultrasound Image Saved?: Yes Needle / Catheter Used: 100mm SonoPlex II Local Anesthetic Bolus (Indicate Dose Given): Lidocaine used for local infiltration of skin, Injected in 3-5ml increments after negative blood aspiration and Ropivacaine 0.5% Dose:: 0.5%/25cc (125mg) Additives (Indicate Dose Given): Epinephrine to make 1:200,000 (5mcg/ml) Dose:: 125mcg Ultrasound: Sterile probe cover and gel used Nerve Stimulator: Not Used Paresthesia: None Procedure Tolerated: No Complications and Patient tolerated well Procedure Outcome: Successful Performed By: Teja Barraza
[2023-08-28 09:14] VITALS: BP 124/66; PULSE 102; RESP 18; TEMP 36.2; O2SAT 98
--- NOTE | 2023-08-28 09:31 | W.ANESPOSTOP ---
Postoperative Evaluation Date, Time and Location Date Performed: 08/28/23 Time Performed: 09:31 Patient Location: Day Surgery Unit Vital Signs Most Recent Imported Vital Signs: Most Recent Vital Signs Temp Pulse Resp BP Pulse Ox 36.2 C L 102 H 18 124/66 98 08/28/23 09:14 08/28/23 09:14 08/28/23 09:14 08/28/23 09:14 08/28/23 09:14 Pain Score Most Recent Pain Score: Most Recent Pain Score Pain Level 0 08/28/23 09:14 Assessment Mental Status: Awake (Alert & Oriented to Patient Baseline) Airway and Respiratory Function: Patent airway with normal (patient baseline) respiratory exam Cardiovascular Function: Hemodynamically Stable Hydration Status: Adequately Hydrated Nausea & Vomiting: No Nausea or Vomiting Pain: Pt. Denies Any Pain Peripheral Nerve Block: Regional nerve block not resolved at time of post operative discharge
[2023-08-28 09:42] VITALS: BP 134/73; PULSE 85; RESP 18; TEMP 36.2; O2SAT 99
== END 2023-08-28 10:18 | disposition home or self-care (01) ==
PROVIDERS: PCP Physician Assistant Medical; Visit Provider Student in an Organized Health Care Education/Training Program
PROC: (CPT 25605; principal; 2023-08-28 08:30)
DX: S52.502A Unspecified fracture of the lower end of left radius, initial encounter for closed fracture (principal); X58.XXXA Exposure to other specified factors, initial encounter
CPT/HCPCS: 25605; 81025; 73100; J0171; J1100; J1885; J2001; J2250; J2405; J2704

== ENCOUNTER 2023-09-09 14:40 | Outpatient (CLI) | payer BC, SELFPAY ==
--- NOTE | 2023-09-09 13:45 | DI.RAD_ITS ---
Exam(s) XR WRIST LT LIMITED EXAM: XR WRIST LT LIMITED CLINICAL HISTORY: F/U FRACTURE. TECHNIQUE: 2D digital imaging was performed of the left wrist. Two images were obtained. PA and la teral views were obtained. COMPARISON: CR,XR XR WRIST LT LIMITED from 08/27/2023 FINDINGS: The cast has been removed BONES: There is again seen a comminuted intra-articular fracture of the distal left radius. There is impaction of the fracture noted. No new fracture is seen. No bony destructive lesion is seen. JOINTS: The carpal bones are normally aligned. SOFT TISSUE: Normal. IMPRESSION: Comminuted impacted intra-articular fracture of the distal radius. DATA REPOSITORY: RADIATION DOSE DELIVERED:
== END 2023-09-09 14:41 | disposition home or self-care (01) ==
LOC: DIORS 14:41
PROVIDERS: PCP Physician Assistant Medical; Visit Provider Student in an Organized Health Care Education/Training Program
DX: S52.351A Displaced comminuted fracture of shaft of radius, right arm, initial encounter for closed fracture (principal); X58.XXXA Exposure to other specified factors, initial encounter
CPT/HCPCS: 73100

== ENCOUNTER 2023-09-23 11:31 | Outpatient (CLI) | payer BC, SELFPAY ==
--- NOTE | 2023-09-23 10:30 | DI.RAD_ITS ---
Exam(s) XR WRIST LT LIMITED EXAM: XR WRIST LT LIMITED INDICATION: F/U FRACTURE. COMPARISON: CR XR WRIST LT LIMITED from 09/09/2023 TECHNIQUE: 2D digital imaging was performed. Two views. FINDINGS: A cast is in place. There has been no change in the alignment of the distal radial fracture. DATA REPOSITORY: RADIATION DOSE DELIVERED:
== END 2023-09-23 11:32 | disposition home or self-care (01) ==
LOC: DIORS 11:31
PROVIDERS: PCP Physician Assistant Medical; Visit Provider Student in an Organized Health Care Education/Training Program
DX: S52.572D Other intraarticular fracture of lower end of left radius, subsequent encounter for closed fracture with routine healing (principal); X58.XXXD Exposure to other specified factors, subsequent encounter
CPT/HCPCS: 73100

== ENCOUNTER 2023-10-06 14:56 | Outpatient (CLI) | payer BC, SELFPAY ==
--- NOTE | 2023-10-06 13:00 | DI.RAD_ITS ---
Exam(s) XR WRIST LT LIMITED EXAM: XR WRIST LT LIMITED INDICATION: fracture follow up. COMPARISON: CR XR WRIST LT LIMITED from 09/23/2023 TECHNIQUE: 2D digital imaging was performed. Two views. FINDINGS: The splint has been removed. There has been no change in the alignment of the comminuted distal radi al fracture. No new abnormalities are seen. DATA REPOSITORY: RADIATION DOSE DELIVERED:
== END 2023-10-06 14:57 | disposition home or self-care (01) ==
LOC: DIORS 14:56
PROVIDERS: PCP Physician Assistant Medical; Visit Provider Physician Assistant
DX: S52.352D Displaced comminuted fracture of shaft of radius, left arm, subsequent encounter for closed fracture with routine healing (principal); X58.XXXD Exposure to other specified factors, subsequent encounter
CPT/HCPCS: 73100

== ENCOUNTER 2023-11-03 14:04 | Outpatient (CLI) | payer BC, SELFPAY ==
--- NOTE | 2023-11-03 13:20 | DI.RAD_ITS ---
Exam(s) XR WRIST LT LIMITED EXAM: XR WRIST LT LIMITED INDICATION: F/U FRACTURE. COMPARISON: CR XR WRIST LT LIMITED from 10/06/2023 TECHNIQUE: 2D digital imaging was performed. Two views. FINDINGS: There has been no change in the alignment of the distal radial fracture. There has been some increas ed healing when compared with the prior exam. DATA REPOSITORY: RADIATION DOSE DELIVERED:
== END 2023-11-03 14:05 | disposition home or self-care (01) ==
LOC: DIORS 14:04
PROVIDERS: PCP Physician Assistant Medical; Visit Provider Student in an Organized Health Care Education/Training Program
DX: S52.502D Unspecified fracture of the lower end of left radius, subsequent encounter for closed fracture with routine healing (principal); X58.XXXD Exposure to other specified factors, subsequent encounter
CPT/HCPCS: 73100

== ENCOUNTER → 2024-04-27 04:20 | Outpatient (CLI) | payer BC, SELFPAY ==
--- NOTE | 2024-04-27 | DI.MAMMO_ITS ---
Exam(s) MAMMO SCREENING EXAM: MAMMO SCREENING CLINICAL HISTORY: SCREENING MAMMO FOR BREAST US Z12.31. TECHNIQUE: Bilateral full field digital CC and MLO mammographic images were obtained with 3D tomosyn thesis and utilizing computer aided detection (CAD). COMPARISON: Prior mammograms were reviewed. FINDINGS: There has been no significant change in the appearance and distribution of the fibroglandular tissue. There are no new spiculated masses nor malignant appearing microcalcification groups. There is no significant architectural distortion nor skin thickening-retraction. IMPRESSION: No radiographic evidence of malignancy. BI-RADS Category 1 - Negative Breast Density - Category B - Scattered areas of fibroglandular density Breast density Category C or D implies that the patient has dense breast tissue. Dense breast tissue can make it harder to find cancer on a mammogram. Dense breast tissue is also associated with an incr eased risk of breast cancer. This information about the result of the mammogram report was provided to the patient to raise their awareness. Use this report when you speak with the patient about their risks for breast cancer, which includes their family history. At that time, you may recommend additional screening tests (Ultrasoun d or MRI) as these tests may add significant information. A negative radiographic report should not delay biopsy if a dominant or clinically suspicious mass is present. Up to ten percent of cancers are not identified on mammography. A negative report may reinforce clinical impression. Adenosis and dense breasts may obscure an underlying neoplasm. False positive reports average 6 to 10%. Patient will receive a letter notifying them of these results.
== END ==
PROVIDERS: PCP Physician Assistant Medical; Visit Provider Physician Assistant Medical
DX: Z12.31 Encounter for screening mammogram for malignant neoplasm of breast (principal)
CPT/HCPCS: 77063; 77067

== ENCOUNTER 2024-06-20 11:19 | Emergency (ER) | payer BC, SELFPAY ==
[2024-06-20] VITALS (19 sets, daily range): BP systolic 146–184; BP diastolic 72–85; PULSE 67–102; RESP 15–31; TEMP 36.9; O2SAT 97–100
--- NOTE | 2024-06-20 11:15 | RT.EKG_ITS ---
APPROVED REPORT Exam: Resting ECG Reason for Exam: sob Patient Location: E HR:118 bpm ECG Measurements Heart Rate 118 AXIS NJ 158 P 66 QRSd 78 QRS 10 QT 339 T -8 QTc 476 Conclusion Sinus tachycardia...rate> 99
--- NOTE | 2024-06-20 12:09 | W.ED.GENAD ---
Discharge Plan Disposition Patient Disposition: Home Condition: Stable Discharge Details Clinical Impression: Shortness of breath Primary Care Provider: mAy Castanon ED Provider: Teja Reynolds Home Meds and New Rx's Prescriptions: Continued magnesium 500 mg Tablet 500 mg PO DAILY cranberry 400 mg Capsule 400 mg PO DAILY omega-3 fatty acids 300 mg Capsule 300 mg PO DAILY Discharge Instructions Additional Instructions: Your x-ray and blood work did not show any concerning findings at this time Follow-up as scheduled next week with your primary care provider If you feel more ill, have severe worsening shortness of breath or persistent vomiting return to the emergency department for reevaluation. HPI General Mode of arrival: ambulatory. Date/Time Provider Initiated Documentation: 06/20/24 11:21. Limitations to Documentation: no limitations. Information obtained by: patient. History of Present Illness 54 year old F presents to the emergency department with the chief complaint of shortness of breath, described as moderate, Patient started experiencing this hour(s) (6) and it has been constant. No relieving factors improve symptom(s), No exacerbating factors reported . Patient notes chest pain; denies cough and fever/chills. Patient did receive the following treatments prior to arrival, none Related Data Home Medications ?Medication ?Instructions ?Recorded ?Confirmed cranberry 400 mg capsule 400 mg PO DAILY 08/27/23 06/20/24 magnesium 500 mg tablet 500 mg PO DAILY 08/27/23 06/20/24 omega-3 fatty acids 300 mg capsule 300 mg PO DAILY 08/27/23 06/20/24 Allergies Allergy/AdvReac Type Severity Reaction Status Date / Time No Known Allergies Allergy Verified 06/20/24 11:28 General Stated Complaint: SOB FRANCISCA: 3 Review of Systems All systems reviewed & are unremarkable except as noted in HPI and below Constitutional Constitutional: Denies chills, Denies fever(s) and Denies weakness Cardiovascular Cardiovascular: Reports chest pain and Reports dyspnea Respiratory Respiratory: Denies cough and Reports dyspnea Gastrointestinal Gastrointestinal: Denies abdominal pain, Denies nausea and Denies vomiting Integumentary/Breasts Skin/Breast: Denies rash Neurologic Neurologic: Denies weakness Exam Const General: no acute distress Orientation: alert HENMT Head: normal to inspection Ears: external ears normal General nose exam: external nose normal Mouth: moist mucous membranes Eyes General: appearance normal, both eyes and all related structures Neck Neck: normal visual inspection Resp Effort & Inspection: normal respiratory effort and able to speak in complete sentences Auscultation: clear to auscultation bilaterally Cardio Jugular venous pressure: no JVD Rate: regular rate Heart Sounds: no murmurs Skin General skin exam: no rashes or lesions noted Neuro General: patient alert and patient oriented x3 Extrem General: normal to inspection Psych Mental Status: mental status grossly normal Course Vital Signs Vital signs: Vital Signs Temperature 36.9 C 06/20/24 11:21 Pulse 102 H 06/20/24 11:21 Respiratory Rate 16 06/20/24 11:21 Blood Pressure 184/85 H 06/20/24 11:21 Pulse Oximetry 100 06/20/24 11:21 Temperature 36.9 C 06/20/24 11:21 Temperature Source Skin 06/20/24 11:21 Pulse 102 H 06/20/24 11:21 Respiratory Rate 16 06/20/24 11:21 Blood Pressure 184/85 H 06/20/24 11:21 Blood Pressure Position Sitting 06/20/24 11:21 Pulse Oximetry 100 06/20/24 11:21 Oxygen Delivery Method Room Air 06/20/24 11:21 Oxygen Flow Rate 0 06/20/24 11:21 Pain Level 0 06/20/24 11:21 Medical Decision Making 54-year-old female with no significant past medical history comes in with feeling shortness of breath and anterior chest pain since waking up this morning. She says she had similar episodes in the past but usually resolve after some time. She says yesterday she felt fine. She is speaking in full sentences, has no leg swelling or calf tenderness, no abdominal tenderness. She has clear lung sounds, no JVD. Unclear etiology for symptoms but given the pain and shortness of breath we will proceed with troponin, CBC, CMP, D-dimer to screen for PE. She has no tearing back pain and equal peripheral pulses so doubt dissection. Also check a Fluvid and a chest x-ray. Labs and imaging unremarkable, patient stable asymptomatic. Given over 3 hours of symptoms do not feel delta troponin indicated. D-dimer below the age-adjusted cutoff. She is stable for discharge, will follow-up with her PCP and return precautions given Differential Diagnosis Differential Diagnosis: PE, URI, NSTEMI Imaging Data Radiologic Study: Attestation: I personally reviewed and interpreted this imaging study as follows: Imaging: X-Ray Radiologist's impression: no acute findings Lab Data Lab results reviewed: Yes I reviewed the patient's lab results. ECG Data Attestation: I personally reviewed and interpreted this ECG (s) as follows: Prior ECG tracings: not available for review Interpretation: Sinus tachycardia, rate of 118, MD 158, no STEMI Quality:SDOH Health Related Social Needs: No Data to Display PFSH All Active Problems (Updated 06/20/24 @ 13:55 by Teja Reynolds MD) Shortness of breath (Acute) Fracture of left distal radius (Acute 08/27/23) Epicondylitis, lateral, right (Acute) History of bilateral ligation of fallopian tubes (Acute) History of myringotomy (Acute) Status post adenoidectomy (Acute) Uterine prolapse (Acute 10/06/12) SEES DR. 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 Brother No problems noted. Maternal Grandfather , AGE 85 Alcohol abuse Lymphoma Paternal Grandfather , AGE 26 Leukemia Maternal Grandmother , AGE 54 Diabetes Stroke Paternal Grandmother Diabetes Cancer Paternal Aunt Diabetes Paternal Uncle Diabetes Son No problems noted. Son No problems noted. Son No problems noted. Son No problems noted. Son No problems noted. 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 Pets and animals: Yes Pets and animals: dog(s) Sexually active: Yes Do you think of yourself as: straight/heterosexual Current gender identity: female What is your relationship status?: How often do you talk on the phone with friends or family?: three or more times per week How often do you get together with friends or relatives?: three or more times per week How often do you attend roman catholic or synagogue services?: 4 or more times per year Do you belong to any clubs or organized social groups?: no Panel score (0-1 are the most socially isolated patients): 3 What type of physical activity do you participate in: walking Duration: 15-30 minutes/day Frequency: 1-2 times per week Bhavna/Roman Catholic: Mandaen Special bhavna needs: No Seatbelt use: always Helmet use: No (N/A) Drive intox or ride w/intox 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
[2024-06-20] MEDS: Normal Saline 1,000 ML 1000 ML IV (12:49)
[2024-06-20 12:54] LABS: Abs Immature Grans 0.01 10^3/uL (0.0-0.06); Absolute Basophil Count 0.01 10^3/uL (0.0-0.2); Absolute Eosinophil Count 0.13 10^3/uL (0.0-0.7); Absolute Lymphocyte Count 1.31 10^3/uL (1.2-3.4); Absolute Monocyte Count 0.66 10^3/uL (0.1-0.8); Absolute Neutrophil Count 4.15 10^3/uL (1.2-6.7); Basophils % 0.2 %; Eosinophils % 2.1 %; HCT 42.1 % (36.0-46.0); Immature Grans % 0.2 %; Lymphocytes % 20.9 %; MCH 29.2 pg (27.0-33.0); MCHC 33.3 % (32.0-36.0); MCV 88 fL (80-95); MPV 9.5 fL (8.0-11.0); Monocytes % 10.5 %; Neutrophils % 66.1 %; Platelet Count 262 10^3/uL (130-400); RDW 12.3 % (11.7-14.6); RDW-SD 39.8 fL; WBC 6.27 10^3/uL (4.4-10.8)
[2024-06-20 13:03] LABS: BE (Venous) -1 mmol/L (-2-3); HCO3 (Venous) 25 mmol/L (23-28); O2 Sat (Venous) 77 %; TCO2 (Venous) 23 mmol/L (24-29); pCO2 (Venous) 43 mmHg (41-51); pH (Venous) 7.37 (7.31-7.41); pO2 (Venous) 43 mmHg
[2024-06-20 13:13] LABS: ALT 30 U/L (14-59); AST 18 U/L (15-37); Alkaline Phosphatase 60 U/L (46-116); Anion Gap 9.8 mmol/L (3-11); BUN 12 mg/dL (7-18); Bilirubin, Total 0.64 mg/dL (0.2-1.0); CO2 26.2 mmol/L (21.0-32.0); CREATININE 0.7 mg/dL (0.55-1.02); Calcium 8.6 mg/dL (8.5-10.1); Chloride 108 mmol/L (98-107); Estimated GFR 103.35 (mL/min/1.73m2); Glucose 97 mg/dL (74-106); Magnesium 1.8 mg/dL (1.8-2.4); Potassium 4.1 mmol/L (3.5-5.1); Sodium 144 mmol/L (136-145); Total Protein 7.5 g/dL (6.4-8.2)
[2024-06-20 13:25] LABS: Troponin I < 50 ng/L (< or =60)
[2024-06-20 13:31] LABS: D-Dimer 504 ng/mlFEU (<500)
--- NOTE | 2024-06-20 13:31 | DI.RAD_ITS ---
Exam(s) XR CHEST 2V PA LATERAL EXAM: XR CHEST 2V PA LATERAL CLINICAL HISTORY: shortness of breath TECHNIQUE: 2D digital imaging was performed. Two views. COMPARISON: No exams were available for comparison FINDINGS: HEART: Normal size. Aorta: Not dilated. PULMONARY VASCULATURE: Normal. MEDIASTINUM: Unremarkable. LUNGS: Clear. PLEURAL SPACE: No pleural effusion or pneumothorax. BONE:Unremarkable for age. SOFT TISSUES: Unremarkable. IMPRESSION: No acute abnormality. DATA REPOSITORY: RADIATION DOSE DELIVERED:
[2024-06-20 13:37] LABS: Procalcitonin < 0.1 ng/mL
[2024-06-20] MEDS: Normal Saline Flush 10 ML SYR IVP (14:06)
== END 2024-06-20 14:17 | disposition home or self-care (01) ==
PROVIDERS: Emergency Provider Emergency Medicine; PCP Physician Assistant Medical
DX: R06.02 Shortness of breath (principal); R07.9 Chest pain, unspecified; R00.0 Tachycardia, unspecified; I10 Essential (primary) hypertension
CPT/HCPCS: 80053; 82805; 84145; 87637; 93005; 96360; 99285; 71046; 83735; 84484; 85025; 85379; 93010; 99284

== ENCOUNTER 2025-01-11 01:51 | Outpatient (CLI) | payer BC, SELFPAY ==
--- NOTE | 2025-01-11 10:47 | DI.RAD_ITS ---
Exam(s) RF BARIUM SWALLOW EXAM: RF BARIUM SWALLOW CLINICAL HISTORY: Dysphagia, R13.10 TECHNIQUE: 2D and realtime digital imaging was performed. CONTRAST MATERIAL: Oral barium contrast was administered. COMPARISON: CR XR CHEST 2V PA LATERAL from 06/20/2024 FINDINGS: CHEST X-RAY: The heart and pulmonary vasculature are within normal limits. The lungs are clear. No pl eural effusion or pneumothorax is present. The bones are within normal limits for the patient's age. ESOPHAGRAM: The esophagus is patent with no evidence for erosions, fold thickening, strictures, or ma sses. With regards to the motility, there is a normal primary stripping wave. No tertiary contraction s were noted. There is a small hiatal hernia. The patient was able to swallow the barium tablet with out difficulty. IMPRESSION: Normal esophagram RADIATION DOSE DELIVERED: oracio Najera=17.9 mGy
[2025-01-11] MEDS: Barium Sulfate 98% W/W 140 ML BTL PO (10:48)
[2025-01-11] MEDS: Barium Sulfate 700 MG TAB PO (10:48)
[2025-01-11] MEDS: Barium Sulfate 60% W/V 355 ML BTL PO (10:49)
== END 2025-01-11 02:11 ==
PROVIDERS: PCP Physician Assistant Medical; Visit Provider Physician Assistant Medical
DX: R13.10 Dysphagia, unspecified (principal)
CPT/HCPCS: 74221; J3490

== ENCOUNTER 2025-06-07 18:56 | Outpatient (REF) | payer BC, SELFPAY ==
[2025-06-09 10:43] LABS: HIV-1/2 Ag & Ab Screen Negative (Negative)
[2025-06-09 11:46] LABS: Hepatitis A Antibody IgM Negative (Negative); Hepatitis C Ab w Rflx HCV PCR Negative (Negative)
== END 2025-06-07 18:57 | disposition home or self-care (01) ==
LOC: NCHCN 18:56
PROVIDERS: PCP Physician Assistant Medical; Visit Provider Physician Assistant Medical
DX: Z20.5 Contact with and (suspected) exposure to viral hepatitis (principal)
CPT/HCPCS: 86704; 86709; 86803; 87340; 87389